=== PATIENT | male | born 1960 | race Caucasian/White ===

== ENCOUNTER 2017-03-02 20:27 | Emergency (ER) | payer OTHER ==
[~2017-03-02] VITALS: Ht 177.8 cm; Wt 120.0 kg
[~2017-03-02 20:27] MED LIST: Z.0.NO CURRENT MEDS
[2017-03-02 20:29] VITALS: BP 140/87; PULSE 83; RESP 16; TEMP 98; O2SAT 96
[2017-03-02] MEDS ORDERED: ROBA750T PO (21:26)
[2017-03-02] MEDS ORDERED: DICL75TA PO (21:26)
[2017-03-02] MEDS ORDERED: CYCLOBENZAPRINE HCL 10 MG TAB PO ONE (21:30)
[2017-03-02] MEDS ORDERED: ACETAMINOPHEN/HYDROcodone 325 MG/5 MG TAB PO ONE (21:30)
[2017-03-02] MEDS ORDERED: TETANUS/DIPHTHERIA TOXOID ADULT 0.5 ML VIAL IM ONE (21:30)
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
[2017-03-02 22:02] VITALS: BP 110/58; PULSE 76; RESP 18; TEMP 98.1; O2SAT 100
== END 2017-03-02 22:35 | disposition home or self-care (01) ==
LOC: NEPD 20:27
DX: S39.012A Strain of muscle, fascia and tendon of lower back, initial encounter (principal); M54.32 Sciatica, left side; V49.40XA Driver injured in collision with unspecified motor vehicles in traffic accident, initial encounter; Z23 Encounter for immunization
CPT/HCPCS: 72100; 90471; 90714